=== PATIENT | male | born 1990 | race Caucasian/White ===

== ENCOUNTER 2022-01-28 11:02 | Emergency (ER) | payer SELFPAY ==
[2022-01-28 11:11] VITALS: BP 140/86; PULSE 90; RESP 20; TEMP 36.2; O2SAT 100
[2022-01-28 11:39] LABS: Appearance Urine Clear (Clear); Bilirubin Urine Negative (Negative); Blood Urine Negative (Negative); Color Urine Yellow (Yellow); Glucose Urine UA Negative (Negative); Ketones Urine Negative (Negative); Leukocyte Esterase Ur Negative LEU/UL (Negative); Nitrate Urine Negative (Negative); Protein Urine Negative (Negative); Urobilinogen Urine 0.2 mg/dL (<2.0); pH Urine 8.5 (5.0-9.0)
[2022-01-28 11:42] LABS: Add Urine Microscopic? NO
--- NOTE | 2022-01-28 12:46 | ED.MALEGU ---
HPI - Male Genitourinary General Chief complaint: Urogenital-Male Stated complaint: painful urination Time Seen by Provider: 01/28/22 12:37 Source: patient and family History of Present Illness HPI Narrative: Green urination with discomfort prior to arrival to the emergency room. Patient denies any fever, chills, nausea, vomiting, abdominal pain, back pain. Last sexual activity over 3 years ago. Related Data Allergies Allergy/AdvReac Type Severity Reaction Status Date / Time No Known Allergies Allergy Unverified 03/31/18 18:46 Review of Systems Review of Systems: All systems reviewed & are unremarkable except as noted in HPI and below Exam Narrative: General appearance: Well-developed, well-nourished Skin: Normal color Head: Normocephalic, nontraumatic Eyes: Clear conjunctiva ENT: Oropharynx normal, ears normal, nose normal Neck: Supple, nontender Chest and respiratory: Airway patent, no respiratory distress, no accessory muscle use Heart: Regular rate/rhythm Abdomen: Soft, nontender, no organomegaly, quiet bowel sounds Vascular: Normal peripheral pulses, normal capillary refill. Musculoskeletal: Normal range of motion, nontender back Neurologic: Alert and oriented ?3, [employer] is normal as tested, no gross motor deficit Const: General: healthy appearing Course Vital Signs Vital signs: Vital Signs Temperature 36.2 C L 01/28/22 11:11 Pulse Rate 90 01/28/22 11:11 Respiratory Rate 20 01/28/22 11:11 Blood Pressure 140/86 01/28/22 11:11 Pulse Oximetry 100 01/28/22 11:11 Oxygen Delivery Room Air 01/28/22 11:11 Temperature 36.2 C L 01/28/22 11:11 Pulse Rate 90 01/28/22 11:11 Respiratory Rate 20 01/28/22 11:11 Blood Pressure 140/86 01/28/22 11:11 Pulse Oximetry 100 01/28/22 11:11 Oxygen Delivery Room Air 01/28/22 11:11 MDM - Male Genitourinary MDM Narrative Medical decision making narrative: Urethritis is my concern Differential Diagnosis Differential diagnosis: Likely other (Urethritis) Lab Data Labs: Lab Results 01/28/22 Range/Units 11:18 Urine Color Yellow (Yellow) Urine Appearance Clear (Clear) Urine pH 8.5 (5.0-9.0) Ur Specific [place] 1.020 (1.001-1.035) Urine Protein Negative (Negative) mg/dL Urine Glucose (UA) Negative (Negative) mg/dL Urine Ketones Negative (Negative) mg/dL Ur Blood (Man) Negative (Negative) Urine Nitrate Negative (Negative) Urine Bilirubin Negative (Negative) Urine Urobilinogen 0.2 (<2.0) mg/dL Leukocyte Esterase Rfl Negative (Negative) THERESA/UL Critical Care Time Critical Care Time Critical Care Time: No Discharge Plan Discharge Clinical Impression: Urethritis Patient Disposition: Home, Self-Care Condition: Stable Instructions: Antibiotic Form, Nonspecific Urethritis in Men (ED) Additional Instructions: Return if symptoms are worsening , call your family physician for appointment, take Tylenol as as needed for aches and pain, continue home medications. Prescriptions: New ciprofloxacin HCl [Cipro] 500 mg tablet 500 mg PO Q12H Qty: 14 0RF phenazopyridine [Pyridium] 200 mg tablet 200 mg PO TID PRN (Reason: pain) Qty: 6 0RF Follow-up/Referrals: Jenny,Emily Leyva MD [Primary Care Provider] -
== END 2022-01-28 13:56 | disposition home or self-care (01) ==
PROVIDERS: Emergency Provider Emergency Medicine; PCP Physician Assistant
DX: N34.2 Other urethritis (principal)
CPT/HCPCS: 81003; 99283

== ENCOUNTER 2023-02-04 17:17 | Emergency (ER) | payer SELFPAY ==
[2023-02-04 17:20] VITALS: BP 129/90; PULSE 75; RESP 18; TEMP 36.3; O2SAT 100
[2023-02-04 18:29] LABS: Basophils Absolute Auto 0.1 K/mm3 (0.0-0.1); Basophils Percent Auto 0.8 % (0.2-1.2); Eosinophils Absolute Auto 0.2 K/mm3 (0-0.3); Eosinophils Percent Auto 3.1 % (0-4.4); Hematocrit 46.9 % (42.0-52.0); Hemoglobin 15.4 g/dL (14.0-18.0); Immature Granulocyte Absolute 0.01 K/mm3 (0.00-0.031); Immature Granulocyte Percent A 0.1 % (0-0.5); Lymphocytes Absolute Auto 1.18 K/mm3 (0.9-3.2); Lymphocytes Percent Auto 16.5 % (18.3-44.2); Mean Corpuscular HGB Conc 32.8 g/dl (32-36); Mean Corpuscular Hemoglobin 29.9 pg (26-34); Mean Corpuscular Volume 91.1 fl (80-100); Mean Platelet Volume 10.4 fl (7.4-10.4); Monocytes Absolute Auto 0.7 K/mm3 (0.1-0.6); Monocytes Percent Auto 10.1 % (2.6-8.5); Neutrophils Percent Auto 69.4 % (45.5-73.1); Platelet Count Result 317 k/mm3 (150-375); Red Blood Count 5.15 M/mm3 (4.6-6.20); Red Cell Distribution Width 12.4 % (11.5-14.5); White Blood Count 7.1 K/mm3 (4.5-10.0)
[2023-02-04 18:38] LABS: Alanine Aminotransferase 33 U/L (6-50); Albumin Level 4.8 g/dL (3.5-5.1); Alkaline Phosphatase 53 U/L (38-126); Anion Gap 13 mmol/L (8-16); Aspartate Amino Transferase 28 U/L (17-59); Bilirubin,Total 0.6 mg/dL (0.2-1.3); Blood Urea Nitrogen 13 mg/dL (9-20); Calcium 9.9 mg/dL (8.4-10.2); Carbon Dioxide 24 mmol/L (22-30); Chloride 104 mmol/L (98-107); Estimated CRCL calculation 144 ml/min; Estimated Glomerular Filt Rate > 60; Glucose 96 mg/dL (65-110); Potassium 3.9 mmol/L (3.4-5.0); Sodium 141 mmol/L (137-145)
[2023-02-04 18:44] LABS: Partial Thromboplastin Time 31.9 SECONDS (22.3-36.8)
[2023-02-04 19:05] VITALS: BP 137/94; PULSE 72; RESP 16; O2SAT 100
--- NOTE | 2023-02-04 20:14 | ED.GENADULT ---
HPI - General Adult General Chief complaint: GI Bleed Stated complaint: rectal bleeding Time Seen by Provider: 02/04/23 19:05 History of Present Illness HPI narrative: This is a 32-year-old male with history of hemorrhoids presenting rectal bleeding. Patient was on the toilet today when he noticed significant red blood. Is more than his typical hemorrhoid bleeding. He started care hospital for evaluation. This time the bleeding has stopped. Patient has no other complaints. Use blood thinners. Hemorrhoids are being treated by his primary care physician Related Data Allergies Allergy/AdvReac Type Severity Reaction Status Date / Time No Known Allergies Allergy Verified 02/04/23 19:06 Exam Narrative: APPEARANCE: No apparent distress. Head: atraumatic. EYES: EOMI, NOSE: Atraumatic NECK: Trachea midline RESPIRATORY: No increased rate of breathing CARDIOVASCULAR: RRR, ABDOMINAL: Non-distended, soft nontender no guarding or rebound Rectal exam: Ruptured hemorrhoid in anus that is non bleeding. No bright red blood per rectum. MUSCULOSKELETAl: No obvious deformities NEURO: Alert. Moving 4/4 extremities SKIN:: Warm, dry. Normal color PSYCHIATRIC: Normal affect Course Vital Signs Vital signs: Vital Signs Temperature 97.4 F L 02/04/23 17:20 Pulse Rate 75 02/04/23 17:20 Respiratory Rate 18 02/04/23 17:20 Blood Pressure 129/90 02/04/23 17:20 Pulse Oximetry 100 02/04/23 17:20 Oxygen Delivery Room Air 02/04/23 17:20 Temperature 97.4 F L 02/04/23 17:20 Pulse Rate 72 02/04/23 19:05 Respiratory Rate 16 02/04/23 19:05 Blood Pressure 137/94 H 02/04/23 19:05 Pulse Oximetry 100 02/04/23 19:05 Oxygen Delivery Room Air 02/04/23 17:20 Medical Decision Making MDM Narrative Medical decision making narrative: -Course: 32-year-old male presenting with brief episode of rectal bleeding. Not currently bleeding. Serial hemoglobins were stable. Patient will be discharged primary care follow-up. 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 Vital Signs Vital Signs: Vital Signs Temperature 97.4 F L 02/04/23 17:20 Pulse Rate 75 02/04/23 17:20 Respiratory Rate 18 02/04/23 17:20 Blood Pressure 129/90 02/04/23 17:20 Pulse Oximetry 100 02/04/23 17:20 Oxygen Delivery Room Air 02/04/23 17:20 Temperature 97.4 F L 02/04/23 17:20 Pulse Rate 72 02/04/23 19:05 Respiratory Rate 16 02/04/23 19:05 Blood Pressure 137/94 H 02/04/23 19:05 Pulse Oximetry 100 02/04/23 19:05 Oxygen Delivery Room Air 02/04/23 17:20 Lab Data 02/04/23 22:38 02/04/23 18:22 Labs: Lab Results 02/04/23 02/04/23 Range/Units 18:22 22:38 WBC 7.1 (4.5-10.0) K/mm3 RBC 5.15 (4.6-6.20) M/mm3 Hgb 15.4 16.4 (14.0-18.0) g/dL Hct 46.9 50.2 (42.0-52.0) % MCV 91.1 (80-100) fl MCH 29.9 (26-34) pg MCHC 32.8 (32-36) g/dl RDW 12.4 (11.5-14.5) % Plt Count 317 (150-375) k/mm3 MPV 10.4 (7.4-10.4) fl Immature Gran % (Auto) 0.1 (0-0.5) % Neut % (Auto) 69.4 (45.5-73.1) % Lymph % (Auto) 16.5 L (18.3-44.2) % [place] % (Auto) 10.1 H (2.6-8.5) % Eos % (Auto) 3.1 (0-4.4) % Baso % (Auto) 0.8 (0.2-1.2) % Lymph # (Auto) 1.18 (0.9-3.2) K/mm3 [place] # (Auto) 0.7 H (0.1-0.6) K/mm3 Eos # (Auto) 0.2 (0-0.3) K/mm3 Baso # (Auto) 0.1 (0.0-0.1) K/mm3 Abs Immat Gran (auto) 0.01 (0.00-0.031) K/mm3 Absolute Neuts (auto) 5.0 (1.3-6.7) K/mm3 Absolute Nucleated RBC 0.0 (0.0-0.012) K/mm3 Nucleated RBC % 0.0 (0.0-0.2) % PT 14.0 (11.1-14.7) Seconds INR 1.0 APTT 31.9 (22.3-
[2023-02-04 22:45] LABS: Hematocrit 50.2 % (42.0-52.0); Hemoglobin 16.4 g/dL (14.0-18.0)
[2023-02-04 23:13] VITALS: BP 144/95; PULSE 77; RESP 18; O2SAT 98
== END 2023-02-04 23:14 | disposition home or self-care (01) ==
PROVIDERS: Emergency Medicine; Emergency Provider Emergency Medicine; PCP Physician Assistant
DX: K64.9 Unspecified hemorrhoids (principal)
CPT/HCPCS: 36415; 80053; 85014; 85018; 85025; 85610; 85730; 86850; 86900; 86901; 99283